=== PATIENT | female | born 1990 | race Caucasian/White ===

== ENCOUNTER → 2021-07-01 14:38 | Outpatient (CLI) | payer OTHER, SELFPAY ==
--- NOTE | 2021-07-01 14:40 | DI.US.S_ITS ---
PROCEDURE: US OB <= 14 WEEKS FETUS INDICATIONS: RULE OUT ECTOPIC AND DATING OUTSIDE/PRIOR DATING DATA: Last menstrual period (LMP): April 27, 2021 LMP-based estimated date of delivery (MESSI): February 01, 2022 First dating scan (date and location): July 01, 2021 Estimated date of delivery (MESSI) from first dating scan: February 04, 2022 TECHNIQUE: Real-time scanning was performed of the fetus and maternal pelvic organs, with image documentation. Endovaginal scanning was also performed to better visualize the fetus and maternal ovaries. COMPARISON: None. FINDINGS: Embryo: Single living intrauterine identified. pole is identified. Gallaway-rump length measures 2.2 centimeters corresponding to ultrasound estimated gestational age of 8 weeks 6 days Heart rate: 175 beats per minute. Measurement variability in dating: +/- 4 weeks by LMP, +/- 7 days by mean sac diameter (use before 6 weeks gestation if crown-rump length not able to be measured), +/- 5 days by crown-rump length (up to 8 weeks 6 days gestation), +/- 7 days by crown-rump length (up to 13 weeks 6 days gestation). Maternal organs: Probable right corpus luteal cyst. IMPRESSION: 1. Single living intrauterine with ultrasound estimated gestational age of 8 weeks 6 days corresponding to ultrasound MESSI of February 04, 2022. 2. Probable right corpus luteal cyst. Dictated by: Steffanie Henry MD, PhD on 07/01/2021 at 16:13 Approved by: Steffanie Henry MD, PhD on 07/01/2021 at 16:15
== END ==
PROVIDERS: Referring Provider Obstetrics & Gynecology; Visit Provider Obstetrics & Gynecology
DX: Z36.87 Encounter for antenatal screening for uncertain dates; Z3A.08 8 weeks gestation of pregnancy
CPT/HCPCS: 76801; 76817

== ENCOUNTER → 2021-08-05 13:48 | Outpatient (CLI) | payer OTHER, SELFPAY ==
[2021-08-05 15:03] LABS: Add Manual Diff / Slide Review NO; Basophils Absolute Auto 0 /uL (0-100); Basophils Percent Auto 0.3 % (0-2); Eosinophils Absolute Auto 0 /uL (0-450); Eosinophils Percent Auto 0.6 % (2-4); Hematocrit 35.7 % (36-46); Hemoglobin 12.1 g/dL (12.0-16.0); Lymphocytes Absolute Auto 1600 /uL (1100-4500); Mean Corpuscular HGB Conc 33.9 % (30-36); Mean Corpuscular Hemoglobin 28.8 PG (26-34); Mean Corpuscular Volume 85.1 fL (80-100); Monocytes Absolute Auto 300 /uL (0-900); Monocytes Percent Auto 4.4 % (3-14); Neutrophils Absolute Auto 5400 /uL (1500-7000); Neutrophils Percent Auto 72.7 % (50-75); Platelet Count 194 X10^3/uL (150-400); Red Blood Cell Count 4.19 X10^6/uL (4.0-5.2); Red Cell Distribution Width 12.7 % (11.6-14.8); White Blood Cell Count 7.4 X10^3/uL (4.5-11.0)
[2021-08-05 15:42] LABS: Alanine Aminotransferase 14 IU/L (<35); Albumin Globulin Ratio 1.5 (1.0-2.8); Alkaline Phosphatase 44 U/L (38-126); Aspartate Aminotransferase 19 IU/L (14-36); Bilirubin Total 0.3 mg/dL (0.2-1.3); Bilirubin Unconjugated 0.1 mg/dL (0.0-1.1); Globulin 2.6 g/dL (1.7-4.1); HEMOLYSIS < 15 (0-50); Total Protein 6.6 g/dL (6.3-8.2)
[2021-08-05 15:43] LABS: Appearance Urine UA CLEAR; Bilirubin Urine UA NEGATIVE (NEGATIVE); Color Urine UA YELLOW; Glucose Urine UA NEGATIVE (Negative); Ketones Urine UA NEGATIVE (NEGATIVE); Leukocyte Esterase Urine UA 1+ (NEGATIVE); Nitrite Urine UA NEGATIVE (Negative); Occult Blood Urine UA NEGATIVE (Negative); Protein Urine UA NEGATIVE (Negative); Specific Gravity Urine UA <=1.005 (1.000-1.035); Urobilinogen Urine UA 0.2 E.U./dL (0.2)
[2021-08-05 15:59] LABS: Bacteria Urine Few (2-10); RBC Urine None Seen (0-5/HPF); Squamous Epithelial Cell Urine 5-10 /HPF (0-5/HPF); Transitional Epi Cells Urine 1-5/HPF (0-5/HPF); WBC Urine 0-1/HPF (0-5/HPF)
[2021-08-06 06:40] LABS: RPR Screen Non Reactive (Non Reactive)
[2021-08-06 08:10] LABS: Varicella IgG Antibody 222 index (Immune >165)
[2021-08-06 16:25] LABS: Hepatitis B Surface Antigen NEGATIVE s/c (NEGATIVE)
[2021-08-06 16:49] LABS: HIV 1 & 2 Ab/Ag 4th Gen Combo NEGATIVE (NEGATIVE); Hep C Virus Ab w/Reflex Quant NEGATIVE s/c (NEGATIVE)
[2021-08-15 13:41] LABS: Rubella Antibody IgG 20.1 IU/mL (>15)
== END ==
PROVIDERS: Referring Provider Obstetrics & Gynecology; Visit Provider Obstetrics & Gynecology
DX: O09.299 Supervision of pregnancy with other poor reproductive or obstetric history, unspecified trimester (principal)
CPT/HCPCS: 36415; 80055; 80076; 81003; 81015; 86787; 86803; 86850; 86900; 86901; 87086; 87389

== ENCOUNTER → 2021-08-10 11:17 | Outpatient (CLI) | payer OTHER, SELFPAY ==
[2021-08-10 15:13] LABS: Protein (Total) Urine Random 13 mg/dL (0-12)
[2021-08-10 16:57] LABS: Collection Time Urine 24 Hours; Total Protein 24 Hour Urine 442 mg/day (42-225); Total Volume Urine 3400 mL
== END ==
PROVIDERS: Referring Provider Obstetrics & Gynecology; Visit Provider Obstetrics & Gynecology
DX: O09.299 Supervision of pregnancy with other poor reproductive or obstetric history, unspecified trimester (principal)
CPT/HCPCS: 84156

== ENCOUNTER → 2021-09-02 16:11 | Outpatient (CLI) | payer OTHER, SELFPAY ==
[2021-09-04 20:51] LABS: AFP, Serum 31.5 ng/mL (.); Estriol, Free 1.65 ng/mL (.); Inhibin A, Dimeric 138.91 pg/mL (.); Inhibin A, MoM 1.03 (.); Maternal Ethnicity Caucasian (.); Maternal Weight 202 lbs (.); Number of Fetuses No (.); OSBR Risk 1 IN 10000 (.); Results Report (.); Test Results *Screen Negative* (.); hCG, MoM 1.11 (.); hCG, Serum 25778 mIU/mL (.)
== END ==
PROVIDERS: Referring Provider Obstetrics & Gynecology; Visit Provider Obstetrics & Gynecology
DX: Z34.82 Encounter for supervision of other normal pregnancy, second trimester (principal); Z3A.17 17 weeks gestation of pregnancy
CPT/HCPCS: 36415; 82105; 82677; 84702; 86336

== ENCOUNTER → 2021-09-24 12:06 | Outpatient (CLI) | payer OTHER, SELFPAY ==
--- NOTE | 2021-09-24 12:07 | DI.US.S_ITS ---
PROCEDURE: US OB >= 14 WEEKS FETUS INDICATIONS: ANATOMY OUTSIDE/PRIOR DATING DATA: Last menstrual period (LMP): 04/27/2021 LMP-based estimated date of delivery (MESSI): 02/01/2022. First dating scan (date and location): 07/01/2021 Estimated date of delivery (MESSI) from first dating scan: 02/04/2022. The calculations are made using the ultrasound MESSI of 02/04/2022. TECHNIQUE: Real-time scanning was performed of the fetus, with image documentation and biometric measurements. COMPARISON: None. FINDINGS: General: A single living intrauterine gestation is present. Presentation: Transverse. Placenta: Placental position is right fundal , without previa. Amniotic fluid index: 16.1 cm, normal range is 5-24 cm. heart rate: 149 beats per minute. Maternal cervical canal: 6.2 cm long. Normal lower limit is 2.5 cm. biometrics: Biparietal diameter: 21 weeks 3 days Head circumference: 21 weeks 3 days Abdominal circumference: 22 weeks 3 days Femur length: 22 weeks 1 day Clinically estimated gestational age: 21 weeks Composite gestational age from present scan: 21 weeks, 6 days Estimated weight and percentile: 479 g; 94th percentile. Anatomic survey: Neuro: Ventricles are non-dilated at less than 10 mm. Cisterna magna is normal at 3-11 mm. Cerebellum is normal in size and morphology. Nuchal skin fold: Normal at less than 6 mm between 14-21 weeks gestational age. Face: Nose and lips, facial profile are normal. Spine: No evidence for spina bifida. Heart: 4-chambered heart is present, with normal ventricular outflow tracts. Diaphragm: Diaphragm is intact. Stomach: Left-sided stomach is present. Kidneys: No hydronephrosis. Normal is less than 5 mm in 2nd trimester, less than 7 mm in 3rd trimester. Cord: 3-vessel cord has orthotopic insertion. Bladder: Normal in size. Extremities: All 4 extremities identified. IMPRESSION: 1. Single living IUP redemonstrated and interval growth is upper limits of normal. 2. Normal anatomic survey. We strive to produce accurate, complete, and clear reports of imaging services. To assist us in improving patient care, this report was composed using standard report templates and voice recognition software. Therefore, it may contain abnormal punctuation, insertions and/or omissions. Occasional wrong-word or sound-alike substitutions may occur. Though we review the report and make efforts to correct it, we do recommend that the report be read carefully in proper context to recognize any text inaccuracies. Dictated by: Kg BALDWIN Interpreted: Oli Thomas MD on 09/24/2021 at 13:12 Transcribed by: WILL on 09/24/2021 at 13:13 Approved by: Oli Thomas M.D. on 09/24/2021 at 15:35
== END ==
PROVIDERS: Referring Provider Obstetrics & Gynecology; Visit Provider Obstetrics & Gynecology
DX: Z34.82 Encounter for supervision of other normal pregnancy, second trimester (principal); Z3A.21 21 weeks gestation of pregnancy
CPT/HCPCS: 76811

== ENCOUNTER → 2021-11-09 15:20 | Outpatient (CLI) | payer OTHER, SELFPAY ==
[2021-11-09 17:18] LABS: Hematocrit 32.5 % (36-46); Hemoglobin 11.2 g/dL (12.0-16.0)
[2021-11-09 17:53] LABS: GTT (PREG) 1 Hour PP 50gm Dose 121 mg/dL (76-139)
== END ==
PROVIDERS: Referring Provider Obstetrics & Gynecology; Visit Provider Obstetrics & Gynecology
DX: Z34.92 Encounter for supervision of normal pregnancy, unspecified, second trimester (principal); Z3A.27 27 weeks gestation of pregnancy
CPT/HCPCS: 36415; 82950; 85014; 85018

== ENCOUNTER → 2022-01-12 15:36 | Outpatient (CLI) | payer OTHER, SELFPAY ==
[2022-01-13 12:22] LABS: Strep Grp B PCR POS for Grp B Strep
== END ==
PROVIDERS: Visit Provider Obstetrics & Gynecology
DX: Z36.85 Encounter for antenatal screening for Streptococcus B (principal); Z3A.36 36 weeks gestation of pregnancy
CPT/HCPCS: 87653

== ENCOUNTER 2022-02-01 05:48 | Inpatient (IN) | payer OTHER, SELFPAY ==
[2022-02-01] VITALS (10 sets, daily range): BP systolic 114–128; BP diastolic 53–78; PULSE 68–87; RESP 12–16; TEMP 35.9–36.5; O2SAT 97–100
--- NOTE | 2022-02-01 | PATH_ITS ---
[facility] Accession Number: [id number] . 01 Material submitted: . PART A: fallopian tube - BILATERAL FALLOPIAN TUBES PART B: subcutaneous tissue - BIOPSIES OF SUBCUTANEOUS NODULE . 01 Diagnosis: A. Bilateral Fallopian Tubes, Bilateral Salpingectomy: Complete cross-sections of intact and fimbriated fallopian tube lumen identified with benign paratubal cysts . B. Subcutaneous Nodule, Biopsies: Features consistent with endometriosis. See comment. MRV 02/05/2022 1402 Local . 01 Comment: B. There is decidualized stroma consistent with hormone effect. . 01 Electronically signed: . Bree Thomas MD, Pathologist NPI- [id number] . 01 Gross description: . The case is received in two parts. . A. Received in formalin, labeled bilateral fallopian tubes consists of two fimbriated fallopian tubes measuring 10.7 x 1.0 cm and 12.5 x 1.0 cm. The shorter fallopian tube exhibits a 1.5 x 1.0 x 0.7 cm subserosal aggregate of adipose tissue, and is otherwise grossly unremarkable upon sectioning. The longer fallopian tube is unremarkable. The specimen is representatively submitted as follows: . A1: Project Consultant section of fimbriae and cross sections of shorter fallopian tube. A2: Project Consultant section of fimbriae and cross sections of longer fallopian tube. . B. Received in formalin, labeled biopsies of subcutaneous nodule consists of an aggregate of fibroadipose tissue measuring 5.0 x 4.5 x 1.9 cm in aggregate. Sectioning the specimen reveals cystic fibrous cut surfaces to yellow lobulated fatty cut surfaces. The specimen is serially sectioned and representatively submitted in cassettes B1-B5. ([id number]) /MRV 02/02/2022 1210 Local . 01 Pathologist provided ICD-10: Z30.2, N80.3 . 01 CPT . 890979, 460553 Specimen Comment: A courtesy copy of this report has been sent to [phone] Performed at: [facility] [address] [place] [address], [place], [place] [id number] MD Jeison Kapoor MD Phone: [phone]
[2022-02-01] MEDS: LACTATED RINGERS 1,000 ML 100 ML IV ×3 (06:15→12:06)
[2022-02-01 07:20] LABS: Add Manual Diff / Slide Review NO; Basophils Absolute Auto 100 /uL (0-100); Basophils Percent Auto 0.5 % (0-2); Eosinophils Absolute Auto 100 /uL (0-450); Eosinophils Percent Auto 0.6 % (2-4); Hematocrit 25.7 % (36-46); Hemoglobin 8.7 g/dL (12.0-16.0); Lymphocytes Absolute Auto 3000 /uL (1100-4500); Lymphocytes Percent Auto 24.4 % (25-40); Mean Corpuscular HGB Conc 33.8 % (30-36); Mean Corpuscular Hemoglobin 28.9 PG (26-34); Mean Corpuscular Volume 85.4 fL (80-100); Monocytes Absolute Auto 600 /uL (0-900); Monocytes Percent Auto 5.2 % (3-14); Neutrophils Absolute Auto 8500 /uL (1500-7000); Neutrophils Percent Auto 69.3 % (50-75); Platelet Count 215 X10^3/uL (150-400); Red Blood Cell Count 3.01 X10^6/uL (4.0-5.2); Red Cell Distribution Width 13.9 % (11.6-14.8); White Blood Cell Count 12.3 X10^3/uL (4.5-11.0)
[2022-02-01 07:41] LABS: COVID19 -Nasal RAPID Negative (Negative)
--- NOTE | 2022-02-01 08:46 | PM.OBHP.1 ---
OB HPI Date/Time Date of admission: 02/01/22 Date Patient Seen: 02/01/22 Time Patient Seen: 08:49 History of Present Condition Chief complaint: REPEAT W/LARRY SALPINGECTOMY : 4 Para: 1 Estimated Date of Delivery: 02/04/22 Estimated Gestational Age (weeks): 39+4 Narrative: Bre Thibodeaux is a 31 year old , MESSI 02/04/2022, admitted for repeat section and bilateral salpingectomy now at 39+ 4 weeks gestational age. Patient had preeclampsia with her 1st but has not had blood pressure issues with this . She was mildly anemic at the time of her 28 week lab work but despite iron supplementation in the 3rd trimester, her hemoglobin and hematocrit are now 8.7 and 25.7. Patient has expressed a desire for sterilization which is planned at the time of her repeat section by bilateral salpingectomy. Patient is GBS positive. Indications Operative indications ( section): previous uterine surgery History of Present care: good care Dating criteria: LMP confirmed by 1st trimester US Ultrasounds: normal 1st trimester US and normal mid trimester US Obstetrical complications: none Medical complications: other (Anemia) Preadmission Labs Blood type: O (+) positive -: Antibody screen: negative, GBS status: positive, HBsAG: negative, HIV: negative and RPR/VDLR: negative -: Chlamydia screen: not detected and Gonorrhea screen: not detected -: Rubella: immune and Varicella: immune HCT: 25.7 HCAB: negative PAP: Normal Quad screen: Normal 1 hr GTT: 121 Prior (ies) History: Primary section Evaluation Evaluation Baseline heart rate: 150 Variability: Moderate (11-25) monitor accelerations: Present Monitor Decelerations: Absent Category of Tracing: Reactive Status: Category l PFSH Medical History (Updated 01/26/22 @ 14:22 by Kishore Verde MD) Ectopic (~05/2018) History of recurrent ear infection Migraine (~2007) Preeclampsia Surgical History (Updated 07/08/21 @ 18:28 by Kishore Verde MD) History of appendectomy (~2012) History of bunionectomy of both great toes (~2013) [place] teeth extracted Family History (Updated 07/01/21 @ 17:21 by Maria Fernanda Markham RN) Mother Aortic dissection Hypertension Aortic aneurysm, including pseudoaneurysm Depression Bipolar 1 disorder Anxiety Father Diabetes mellitus Benign skin lesion Skin cancer Grandmother No problems noted. Grandfather Heart disease Hypertension Heart failure Grandmother History of hysterectomy Grandfather No problems noted. Brother ADD (attention deficit disorder) ADHD Social History marital status: number of children: 1 household members: spouse and children lives independently: Yes caregiver/support person: No housing: house pets and animals: Yes (2 dogs: safe/aware. 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 ) substance use type: does not use during the past year weight has: remained stable well-balanced diet: daily or most days daily servings fruits/ve-4 caffeine: Yes (2 cups coffee, occasional soda : discussed recommendations.) Type(s) of exercise: walking and normal ROM and activity frequency: 3-4 times per week duration: 15-30 minutes/day Meds Home Medications and Allergies Home Medications Medication Instructions Recorded Confirmed Type prenat.vits,luis enrique,[id number] 1 tab PO DAILY 07/01/21 02/01/22 History Allergies Allergy/AdvReac Type Severity Reaction Status Date / Time No Known Drug Allergies Allergy Verified 12/22/21 11:28 Review of Systems Review of Systems Narrative: Problem-specific ROS positives included with HPI OB Exam HENMT Head: normal to inspection Mouth: oral mucosae normal Eyes General: appearance normal, both eyes and all related structures Resp Effort & Inspection: normal respiratory effort and able to speak in complete sentences Auscultation: clear to auscultation bilaterally Cardio Rate: regular rate Rhythm: regular rhythm Heart Sounds: S1 normal, S2 normal and no murmurs Extremities Lower extremity: Yes normal to inspection External Female Exam: Yes other (Deferred) Uterus Location (Fundal Height): 37 Presentation: vertex Estimated Weight (lbs): 8 Objective Labs Result Diagrams: 02/01/22 06:45 Labs: Laboratory Results - last 24 hr 02/01/22 02/01/22 02/01/22 06:45 06:45 07:01 WBC 12.3 H RBC 3.01 L Hgb 8.7 L Hct 25.7 L MCV 85.4 MCH 28.9 MCHC 33.8 RDW 13.9 Plt Count 215 Neut % (Auto) 69.3 Lymph % (Auto) 24.4 L Saline % (Auto) 5.2 Eos % (Auto) 0.6 L Baso % (Auto) 0.5 Neut # (Auto) 8500 H Lymph # (Auto) 3000 Saline # (Auto) 600 Eos # (Auto) 100 Baso # (Auto) 100 SARS-CoV-2 (PCR) Negative Blood Type O Positive Antibody Screen Negative Assessment and Plan Assessment and Plan Assessment and Plan narrative: ASSESSMENT 1. Intrauterine gestation, Carlson, 39+ 4 weeks gestational age, vertex 2. Prior section 3. History of preeclampsia with previous 4. Anemia 5. Request for sterilization 6. GBS carrier, antepartum PLAN 1. Admit for repeat section and bilateral salpingectomy 2. Patient counseled regarding alternatives, risks, benefits, and potential complications associated with repeat section with bilateral salpingectomy. Patient also understands that bilateral salpingectomy is a procedure designed to render her unable on a permanent and irreversible basis to bear children without the benefit of assisted reproductive technology. With full understanding of the above, a written consent was executed, signed, and witnessed this date. 3. See orders.
--- NOTE | 2022-02-01 08:56 | PM.PREOP ---
Pre-operative Note COVID-19 COVID-19 status: Negative Result date/Date tested (Pos, Neg/Pending): 02/01/22 Criteria for continued procedure: Non-surgical alternatives not available or appropriate per current SOC Interval Note History & Physical reviewed/Exam performed by Physician: Yes Changes to H&P: No
[2022-02-01] MEDS: CEFAZOLIN 2 GM/20 ML SYRINGE IV (10:00)
--- NOTE | 2022-02-01 10:47 | SUR.OPER ---
Viable baby boy born at 1023.
--- NOTE | 2022-02-01 10:47 | SUR.OPER ---
Supine on Padded OR bed, head on pillow, safety belt at thigh, arms secured on padded arm boards at <90 degrees abduction. Bump under right buttock. Legs uncrossed with gel pad to heels.
--- NOTE | 2022-02-01 11:32 | P.OP_ITS ---
Operative Date/Time/Diagnoses Date of procedure: 02/01/22 Time of procedure: 10:15 Pre-op diagnosis: Intrauterine gestation, Carlson, 39+ 4 weeks gestational age Prior section Request for sterilization Post-op diagnosis: same (+ Problable incisional endometriosis) Procedure & Clinicians Procedure: Repeat section, low transverse cervical Bilateral salpingectomy Excision, subcutaneous nodules (presumed endometriosis) Same procedure as scheduled: Yes Indications: Bre Thibodeaux is a 31 year old , MESSI 02/04/2022, admitted for repeat section and bilateral salpingectomy now at 39+ 4 weeks gestational age.? Patient had preeclampsia with her 1st but has not had blood pressure issues with this .? She was mildly anemic at the time of her 28 week lab work but despite iron supplementation in the 3rd trimester, her hemoglobin and hematocrit are now 8.7 and 25.7.? Patient has expressed a desire for sterilization which is planned at the time of her repeat section by bilateral salpingectomy.? Patient is GBS positive. Of note, patient states that she has had right-sided incisional pain following her prior section which is worse during her menses and during ovulation. No definitive diagnosis for the source for pain has been made. Surgeon: Kishore Verde Correction[employer] Agency Director: Marie Haney Reason for Correctional Agency Director: Retraction and the timely, effective, and safe completion of this complex surgical procedure Anesthesia Type: Spinal Operative Notes Findings: Viable male infant, Apgars 8/9 , weight 4659 gms. (10 lb. 7.2 oz.). Normal gravid anatomy. There is a 3 x 5 cm area of nodularity and small cyst formation above the fascia on the right side of the incision. The nodule was excised in its entirety and submitted as a pathologic examination. Clinical impression is that this represents incisional endometriosis. Closure Type: primary Specimen(s): cord blood Intraoperative meds administered: Ketorolac Applied: Catheter Estimated Blood Loss (mL): 750 Blood products transfused: none Procedure in detail: With the patient under satisfactory spinal block anesthesia in the dorsal supine position, the abdomen was prepped and draped in the usual fashion for section following insertion of a Romo catheter.? A pre-surgical safety time-out was then taken in accordance with [facility] OR protocols.? A 15 cm transverse incision was then made along the line of her old scar and carried down to the deep fascia.? The deep fascia was incised transversely, the rectus abdomini bluntly, and the peritoneum was entered sharply.? A bladder flap was created with a transverse incision of the peritoneum overlying the lower uterine segment and the bladder advanced.? The lower uterine segment was then incised transversely and the amniotic cavity entered atraumatically.? Clear amniotic fluid was noted and the was delivered from vertex presentation without difficulty.? No cord entanglement was noted. Delayed cord clamping was performed and once the umbilical cord was clamped and cut, cord blood sample was obtained for routine studies.? The placenta was then removed from the endometrial cavity with uterine massage and gentle traction on the umbilical cord.? The endometrial cavity was found to be empty with use of a sloppy wet lap followed by dry lap.? All redundant membranes were removed and the endocervical canal dilated with a ring forcep.? Ring forceps were used to secure both angles and the hysterotomy was closed 1st with #1 Chromic in a running interlocking stitch initiated both angles and tying separately near the midline.? A 2nd layer of #1 Chromic was used in a running interlocking imbricating stitch to over sew the 1st.? A left ascending uterine artery ligation was accomplished with a single stitch of #1 Chromic.? Hemostasis was excellent following placement of 2 additional [id number] stitches of #1 Chromic along the hysterotomy line. With no points of bleeding noted in the pelvis.? Attention was then turned to performance of the bilateral salpingectomy. The distal tube on the left was grasped with a Desi clamp and elevated. A LigaSure device was then used to coagulate and divide the fimbria ovarica with the dissection then carried across the mesosalpinx to the cornua wh ere the tube was amputated. The distal tube on the right was grasped with a Desi clamp and elevated. It the LigaSure device was then used to coagulate and divide the fimbria ovarica with the dissection then carried across the right mesosalpinx to the cornua where the tube was amputated with the LigaSure device. The bladder flap was then closed with 2-0 Vicryl and the anterior peritoneum was closed in a similar fashion.? The fascial incision was carefully inspected and the areas of nodularity suspected to be incisional endometriosis were excised with sharp dissection so as to avoid creating a defect in the fascia. The nodules were excised and submitted as an aggregate specimen for pathologic evaluation. The deep fascia was then closed with #1 Vicryl in a running stitch initiated at the left angle tied separately near the midline.? The right side of the incision was closed with 0 PDS in a running stitch initiated at the right angle and tying separately near the midline. Subcutaneous tissues brought together was 2-0 Vicryl in a running stitch and skin edges were reapproximated with 4-0 Monocryl in a running subcutaneous stitch.? A Telfa pad was placed over the incision followed by 2 ABD pads and a compression dressing was applied. Patient was then transferred to recovery room after having tolerated the procedure well. Complications: none [place] Baby 1: Gender: Male Presentation: vertex Position: Left Occiput Anterior Placental Delivery Description: Spontaneous and Expressed Cord Vessel Description: 3 Vessels score (1 min): 8 score (5 min): 9 weight: 10 lb 4.341 oz Post-operative Condition: stable Disposition: PACU Aftercare: routine postop
[2022-02-01] MEDS: ONDANSETRON 4 MG/2 ML INJ IV (11:48)
--- NOTE | 2022-02-01 12:14 | SUR.PHASEI ---
Report called to [facility], comfortable to accept patient with slight nausea. Had one small emesis of watery bile shortly after arrival, none since.
[2022-02-01] MEDS: METOCLOPRAMIDE 10 MG/2 ML INJ IV (13:14)
[2022-02-01] MEDS: KETOROLAC 30 MG/ML VIAL IV ×2 (16:49→23:15)
--- NOTE | 2022-02-01 17:00 | SUR.PHASEI ---
late note - Dr Ramsay was aware of irregular heart beats (PACs) upon admission to PACU. No orders were given.
[2022-02-02 03:46] VITALS: BP 117/74; PULSE 85; RESP 16; TEMP 36.5
[2022-02-02] MEDS: KETOROLAC 30 MG/ML VIAL IV (05:52)
[2022-02-02 05:58] LABS: Add Manual Diff / Slide Review NO; Basophils Absolute Auto 0 /uL (0-100); Basophils Percent Auto 0.3 % (0-2); Eosinophils Absolute Auto 0 /uL (0-450); Eosinophils Percent Auto 0.4 % (2-4); Hematocrit 29.5 % (36-46); Hemoglobin 10.2 g/dL (12.0-16.0); Lymphocytes Absolute Auto 1500 /uL (1100-4500); Lymphocytes Percent Auto 15.4 % (25-40); Mean Corpuscular HGB Conc 34.5 % (30-36); Mean Corpuscular Hemoglobin 29.3 PG (26-34); Monocytes Absolute Auto 600 /uL (0-900); Monocytes Percent Auto 6.1 % (3-14); Neutrophils Absolute Auto 7400 /uL (1500-7000); Neutrophils Percent Auto 77.8 % (50-75); Platelet Count 134 X10^3/uL (150-400); Red Blood Cell Count 3.47 X10^6/uL (4.0-5.2); Red Cell Distribution Width 13.7 % (11.6-14.8); White Blood Cell Count 9.5 X10^3/uL (4.5-11.0)
--- NOTE | 2022-02-02 07:44 | PM.OBPN.1 ---
Subjective - OB Subjective Patient comments: no complaints and pain well controlled; no flatus present baby status: doing well [place] feeding status: exclusively breast feeding Date Patient Seen: 02/02/22 Time Patient Seen: 07:35 Interval history: Postoperative day 1: Doing well overnight, lochia slowing, no nausea and vomiting, no flatus as yet, pain well controlled. Exam Vital Signs (past 8 hours): Oxygen Delivery Method Room Air Const General: cooperative and comfortable Nutritional Appearance: average body habitus Orientation: alert and oriented x3 HENMT Head: normal to inspection, normocephalic and atraumatic Ears: hearing grossly normal bilaterally Face and sinus: face symmetric Eyes General: appearance normal, both eyes and all related structures Neck Neck: normal visual inspection Resp Effort & Inspection: normal respiratory effort and able to speak in complete sentences Auscultation: clear to auscultation bilaterally Cardio Rate: regular rate Rhythm: regular rhythm Heart Sounds: S1 normal, S2 normal and no murmurs GI Inspection: normal to inspection and incision (Dressing clean and dry) Palpation: soft, no hepatosplenomegaly and mass (Mildly tender, firm fundus, U-2) Auscultation: hypoactive bowel sounds Extrem General: no calf tenderness Psych Appearance: grossly normal Mental Status: mental status grossly normal Speech and Movement: speech and movement normal Mood: congruent mood Affect: normal affect Attitude: cooperative Thought Process: normal Thought Content: normal Judgment: judgment good Objective Labs Result Diagrams: 02/02/22 05:30 Labs: Laboratory Results - last 24 hr 02/01/22 02/02/22 06:45 05:30 WBC 9.5 RBC 3.47 L Hgb 10.2 L Hct 29.5 L MCV 85.0 MCH 29.3 MCHC 34.5 RDW 13.7 Plt Count 134 L Neut % (Auto) 77.8 H Lymph % (Auto) 15.4 L [place] % (Auto) 6.1 Eos % (Auto) 0.4 L Baso % (Auto) 0.3 Neut # (Auto) 7400 H Lymph # (Auto) 1500 [place] # (Auto) 600 Eos # (Auto) 0 Baso # (Auto) 0 Blood Type O Positive Antibody Screen Negative Assessment & Plan Plan day: 1 plan OB: routine care and routine postop care Comments: Anticipate discharge 02/03/2022 Time Spent With Patient Time: Total time spent is greater than 50% in coordination of care (as documented) at patient's floor/unit and/or counseling patient: Time with patient: less than 15 minutes
[2022-02-02] MEDS: IRON SUCROSE 200 MG in SODIUM CHLORIDE 0.9% 100 ML 220 ML IV (09:14)
[2022-02-02] MEDS: DOCUSATE 100 MG CAPSULE 200 MG PO (09:15)
[2022-02-02 11:51] VITALS: TEMP 36.8; TEMP 36.9
[2022-02-02] MEDS: IBUPROFEN 600 MG TABLET PO ×2 (11:51→18:47)
[2022-02-02] MEDS: ACETAMINOPHEN 325 MG TABLET 650 MG PO ×2 (11:51→18:50)
[2022-02-02 13:32] VITALS: TEMP 36.8
[2022-02-02] MEDS: OXYCODONE IR 5 MG TABLET PO ×2 (13:32→18:51)
[2022-02-02 18:47] VITALS: TEMP 36.8
[2022-02-02 18:50] VITALS: TEMP 36.8
[2022-02-02 18:51] VITALS: TEMP 36.8
[2022-02-03] MEDS: IBUPROFEN 600 MG TABLET PO ×2 (03:30→09:13)
[2022-02-03] MEDS: ACETAMINOPHEN 325 MG TABLET 650 MG PO ×2 (03:30→09:13)
--- NOTE | 2022-02-03 07:54 | PM.OBDS.1 ---
Discharge Providers Provider Date of admission: 02/01/22 05:48 Discharge Date: 02/03/22 Primary care physician: Savannah Estrada MD Consults: 02/01/22 12:24 Consult to Neonatal Specialist Routine Comment: Discharge provider: Kishore Verde MD Summary Hospital Course Date Patient Seen: 02/03/22 Time Patient Seen: 07:45 Diagnoses: Intrauterine gestation, Carlson, 39+ 4 weeks gestational age, delivered Prior section Request for sterilization Anemia, chronic Status post repeat section with bilateral salpingectomy Hospital Course: On the morning of 02/01/2022, the patient was admitted for repeat section and bilateral salpingectomy. Details of the procedure well summarized on my operative note of that date. Following surgery the patient has done extremely well with prompt return of bowel and bladder function, she is ambulating independently, tolerating a regular diet, and her pain is well controlled with oral medications. Postop day 1 hemoglobin and hematocrit are consistent with observed operative losses and preoperatively the patient was mildly anemic therefore received 200 mg IV iron sucrose on postoperative day 1. Patient will be discharged at this time in an afebrile normotensive condition to home after being counseled regarding precautionary symptoms, limitations of activity, medications, and plans for follow-up. Medications at discharge will include oxycodone 5 mg tabs 1 p.o. Q 4-6 hours as needed pain dispense 10 with no refills, ibuprofen 600 mg p.o. q.6 hours as needed pain dispense 60 with 2 refills, and Colace 100 mg p.o. b.i.d. times 30 days as needed for constipation. Prior to discharge a fresh AquaCel dressing was placed and she'll return for dressing removal in 1 week. Peripartum Data Delivery Method: Section Laceration Description: None Episiotomy description: None Procedures: Repeat section with bilateral salpingectomy complications: none [place] 1: Gender: Male Disposition of : home Status at Discharge Cognitive/behavioral status at discharge: oriented Functional status at discharge: independent ambulation Overall status at discharge: patient is progressing back to baseline Time Spent with Patient Time attestation: Total time spent providing and/or coordinating discharge services: Time spent: Less than 30 minutes Objective Labs Result Diagrams: 02/02/22 05:30 Exam Vital Signs (past 8 hours): Oxygen Delivery Method Room Air Const General: cooperative and comfortable Nutritional Appearance: average body habitus Orientation: alert and oriented x3 HENMT Head: normal to inspection Ears: hearing grossly normal bilaterally Face and sinus: face symmetric Eyes General: appearance normal, both eyes and all related structures Conjunctivae: conjunctivae normal Sclera: sclerae normal EOM: EOM intact bilaterally Neck Neck: normal visual inspection Resp Effort & Inspection: normal respiratory effort and able to speak in complete sentences Auscultation: clear to auscultation bilaterally Cardio Rate: regular rate Rhythm: regular rhythm Heart Sounds: S1 normal, S2 normal and no murmurs GI Inspection: normal to inspection and incision (Intact, clean and dry. Fresh AquaCel dressing applied.) Palpation: soft, no hepatosplenomegaly and tender (Mild, diffuse lower abdominal) Auscultation: normal bowel sounds Psych Appearance: grossly normal Mental Status: mental status grossly normal Speech and Movement: speech and movement normal Mood: congruent mood Affect: normal affect Attitude: cooperative Thought Process: normal Thought Content: normal Judgment: judgment good Discharge Plan Discharge Plan Patient Disposition: Home Provider Discharge Comment: Please review the written instructions you received when you were discharged from the hospital. Your follow-up appointment will be scheduled for 1 week after your surgery and I look forward to seeing you then. If in the meanwhile however you have any concerns, problems, or issues, please contact the office by phone at [phone] or send me a message via the patient portal. Discharge orders & Medications Prescriptions: New oxycodone 5 mg Tablet 5 mg PO Q4H PRN (Reason: Pain, Moderate (4-6)) 3 Days Qty: 10 0RF ibuprofen 600 mg Tablet 600 mg PO Q6H PRN (Reason: Fever/Mild Pain (1-3)) Qty: 60 2RF docusate sodium 100 mg capsule 100 mg PO BID Qty: 60 2RF Continued prenat.vits,luis enrique,[id number] Tablet 1 tab PO DAILY 0RF Follow up/Referrals: Savannah Estrada MD [Primary Care Provider] - Discharge Health Status Multidrug resistant organism: No MDRO Diet/Activity/Treatments Diet: Diet as Tolerated Activity: As tolerated Skin/Wound/Dressing Care Dressing: Dressing will be removed at your 1 week post op visit. You may shower with the dressing on but avoid tub baths for the first few weeks after surgery. Visit Report/Discharge Packet Instructions: DI for , DI for Prescription Opioid Use, DI for and Nipple Soreness Discharge Data Primary Care Provider: Savannah Estrada
[2022-02-03] MEDS: DOCUSATE 100 MG CAPSULE 200 MG PO (09:14)
[2022-02-03] MEDS: OXYCODONE IR 5 MG TABLET PO (10:52)
== END 2022-02-03 11:51 | disposition home or self-care (01) | DRG 785 ==
PROVIDERS: Admitting Provider Obstetrics & Gynecology; PCP Student in an Organized Health Care Education/Training Program; Referring Provider Obstetrics & Gynecology; Visit Provider Obstetrics & Gynecology
PROC: 10D00Z1 Extraction of Products of Conception, Low, Open Approach (ICD-10-PCS; CPT 59514; principal; 2022-02-01 07:45)
DX: O34.211 Maternal care for low transverse scar from previous cesarean delivery (principal); Z3A.39 39 weeks gestation of pregnancy; Z37.0 Single live birth; O99.02 Anemia complicating childbirth; D64.9 Anemia, unspecified; Z30.2 Encounter for sterilization; O99.824 Streptococcus B carrier state complicating childbirth; Z20.822 Contact with and (suspected) exposure to COVID-19; N83.8 Other noninflammatory disorders of ovary, fallopian tube and broad ligament; R22.2 Localized swelling, mass and lump, trunk
CPT/HCPCS: 36415; 58611; 59050; 59510; 59514; 85025; 86850; 86900; 86901; 87635; C9803; J0330; J0690; J1756; J1885; J2250; J2274; J2405; J2590; J2765; J3010